=== PATIENT | male | born 1975 | race Caucasian/White ===

== ENCOUNTER 2016-05-28 03:23 | Emergency (ER) | payer OTHER ==
[~2016-05-28] VITALS: Ht 182.9 cm; Wt 86.4 kg
[2016-05-28 03:31] VITALS: BP 120/61; PULSE 55; RESP 16; O2SAT 100
--- NOTE | 2016-05-28 03:42 | ED.REPORT ---
HPI-Abd Pain M 40 and Over Date of Service May 28, 2016 ED Provider: Dr. Dillon Omalley M.D. A 41 year old homeless male with a medical history including heart attack, hypertension, and methamphetamine use s/p pacemaker placement presents to the ED with right inguinal pain onset suddenly one week ago while chopping firewood. The patient also reports a large right inguinal mass onset tonight. He denies nausea or vomiting. Nursing Notes Stated Complaint: ABDOMINAL PAIN Chief Complaint: Male Abdominal Pain Nursing Notes Reviewed: Yes Allergies: Coded Allergies: hydrocodone (Verified Allergy, Intermediate, unk, 07/17/14) Scheduled PRN Ibuprofen (Ibuprofen) 600 Mg Tablet 600 MG PO QID PRN PRN For Pain Tramadol (Tramadol) 50 Mg Tablet 100 MG PO Q6H PRN PRN For Pain General Time Seen by MD: 03:41 Chief Complaint Inguinal pain right Hx Obtained From: Patient Arrived By: Walk-in Sudden in Onset?: Yes Onset Occurred: 1 week ago Symptom Duration: Since onset Location: : RLQ (Groin) Quality: Painful Severity: Current: Moderate Severity: Maximum: Moderate Associated with: Denies: Fever, Nausea, Vomiting Pertinent Negative: Relieved by nothing Recent Healthcare: No recent doctor visit Past Medical History Past Medical History Heart attack "Broken back" Reports: Hypertension Past Surgical History Right knee surgery Left knee surgery Pacemaker Reports: Pacemaker insertion Family History Noncontributory Smoking History Light Tobacco Smoker Social History Alcohol Use: Denies alcohol use Drug Use: Meth (History of), THC Other Social History: Local resident, Homeless Ambulatory Status Independent Review of Systems Review of Systems Note: + Right inguinal pain with mass Constitutional: Denies: Fever Respiratory: Denies: Non-productive cough, Shortness of breath GI: Denies: Nausea, Vomiting Complete sys rev & neg: except as marked. Physical Exam Physical Exam Notes: PE: Initial Vital Signs Vital Signs (First) Date Time Temp Pulse Resp B/P Pulse Ox O2 Delivery O2 Flow Rate FiO2 05/28/16 03:31 36.2 55 16 120/61 100 Room Air Initial VS: Reviewed Head / Eyes: Atraumatic, Normocephalic ENT: Conjunctiva normal, No scleral icterus Neck: Supple, Full range of motion Skin: Warm, Dry, No cyanosis Neurologic: Alert, Oriented, Nonfocal Psychiatric: Mood/affect normal, Behavior normal, Normal thought content General/Constitutional: Awake, Alert, No acute distress Abdomen: Soft, Non-tender Male Genitourinary: Penis NL, Testes NL Hernia: Positive: Hernia inguinal R, Hernia is incarcerated, Hernia is reducible, Hernia is tender Interpretation & Diagnostics Lab Results Interpretation Test 05/28/16 04:25 Urine Color Yellow (YELLOW) Urine Appearance Hazy (CLEAR,HAZY) Urine pH 6.5 (5.0-8.0) Urine Specific [place] 1.015 (1.003-1.035) Urine Protein Negativemg/dL (NEG,TRACE) Urine Glucose (UA) Negativemg/dL (NEGATIVE) Urine Ketones Negativemg/dL (NEGATIVE) Urine Occult Blood Negative (NEGATIVE) Urine Nitrite Negative (NEGATIVE) Urine Bilirubin Negative (NEGATIVE) Urine Urobilinogen Normalmg/dL (NORMAL) Urine Leukocyte Esterase Negative (NEGATIVE) Urine RBC 0-2/hpf (0-2) Urine WBC 0-5/hpf (0-5) Urine Epithelial Cells Occasional/hpf (NONE-MOD) Urine Crystals Oxalic acid crystals (NONE Urine Bacteria None/hpf (NONE-FEW) Urine Hyaline Casts None/lpf (NONE) Urine Granular Casts None seen (NONE SEEN) Urine Waxy Casts None seen (NONE SEEN) Urine Red Blood Cell Casts None seen (NONE SEEN) Urine White Blood Cell Casts None seen (NONE SEEN) Urine Mucus None seen (None Seen) Urine Trichomonas None seen (NONE SEEN) Urine Yeast None (NONE SEEN) Urine Culture Reflexed Not indicated Procedures Inguinal hernia reduction: Performed at 03:48 Patient was placed in Trendelenburg position and manually reduced while reverse Valsalva maneuvering Re-Eval/Medical Decision Med Decision/Clinical Course 41-year-old man presents with a right angle hernia that was able to be reduced here. However is of a dangerous size, and at risk for incarceration in the future. Referred to surgical office for surgical management. Home with tramadol and ibuprofen as needed. Instructed on how to reduce the hernia himself in the interim. Source of Hx: Old records Time of Eval: 03:48 Patient Status: Condition improved Re-Evaluation/Progress Note: Hernia reduced successfully. Time of Eval: 04:07 Patient Status: Condition improved Re-Evaluation/Progress Note: Discussed with patient lab results, diagnosis, and plan for discharge. Follow-up and return to the ER instructions given. Patient agrees with plan for care and all questions were addressed. Counseled Regarding: Diagnosis, Lab results, Need for follow-up, When/why to return to ED Discharge & Departure Shift Change Sign-Out Response to Therapy: Improved Primary Impression: Right inguinal hernia Additional Impression: Methamphetamine abuse Disposition: Home Vital Signs - All Vital Signs Date Time Temp Pulse Resp B/P Pulse Ox O2 Delivery O2 Flow Rate FiO2 05/28/16 07:10 36.8 17 157/67 100 Room Air 05/28/16 03:31 36.2 55 16 120/61 100 Room Air )( All Prior VS Reviewed: Yes Condition: Improved Patient Instructions: Inguinal Hernia (ED) Additional Instructions: Avoid bearing down and popping the hernia out. Avoid lifting. If it does pop out, lie down immediately and attempted to suck your belly in and then push it back into place, just as we did here. Ibuprofen as needed for pain, four times daily. Tramadol as needed for pain four times daily. Call the surgical offices morning for follow-up. This hernia will need repair. Referrals: NOPCP (PCP) Vicente Esposito MD [facility] [place] Attestation Portions of this note were transcribed by Cinda Chacon. I, Dr. Omalley, personally performed the history, physical exam, and medical decision-making; I reviewed and confirmed the accuracy of the information in the transcribed note. Signed by: Reginaldo Robert, 05/28/2016, 05:25 copies to: Vicente Esposito MD; [facility] Dillon Omalley MD May 28, 2016 03:42 CINDA CHACON May 28, 2016 03:56
[2016-05-28] MEDS ORDERED: Ketorolac 30 mg/mL 2 mL Inj IM ONE (03:50)
[2016-05-28] MEDS ORDERED: TRAM50TA2 PO (04:16)
[2016-05-28] MEDS ORDERED: IBUP-1827 PO (04:16)
[2016-05-28 04:33] LABS: APPEARANCE,URINE HAZY (CLEAR,HAZY); COLOR,URINE YELLOW (YELLOW); OCCULT BLOOD,URINE NEGATIVE (NEGATIVE); PH,URINE 6.5 (5.0-8.0); UROBILINOGEN,URINE NORMAL (NORMAL)
[2016-05-28 07:10] VITALS: BP 157/67; RESP 17; O2SAT 100
== END 2016-05-28 07:11 | disposition home or self-care (01) ==
LOC: SED 03:23
DX: K40.90 Unilateral inguinal hernia, without obstruction or gangrene, not specified as recurrent (principal); F15.10 Other stimulant abuse, uncomplicated; I10 Essential (primary) hypertension; F17.200 Nicotine dependence, unspecified, uncomplicated; Z88.5 Allergy status to narcotic agent
CPT/HCPCS: 81000; 81002; 96372; 99284; J1885